=== PATIENT | female | born 1995 | race Caucasian/White ===

== ENCOUNTER 2020-02-09 12:12 | Emergency (ER) | payer OTHER, SELFPAY ==
--- NOTE | ~2020-02-09 | US_ITS ---
EXAMINATION: US OB <= 14 weeks fetus DATE: 02/09/2020 13:31 INDICATION: Vaginal bleeding during first trimester TECHNIQUE: Real-time pelvic transabdominal and transvaginal ultrasound was performed. COMPARISON: None. FINDINGS: The uterus measures 5.8 x 3.4 x 4.5 cm. No intrauterine gestational sac is identified. The right ovary measures 2.6 x 1.2 x 1.5 cm. The left ovary measures 2.6 x 1.6 x 2.6 cm. There is normal vascular flow in the ovaries. There is no free fluid in the pelvis. IMPRESSION: 1. of unknown location. Although no intrauterine gestational sac is seen, this may be due t o early gestation. If the patient is clinically stable, recommend followup with serial beta-hCG and u ltrasound. Reviewed, dictated and finalized at location A. [facility] IMPRESSION: 1. of unknown location. Although no intrauterine gestational sac is s een, this may be due to early gestation. If the patient is clinically stable, r ecommend followup with serial beta-hCG and ultrasound.
[2020-02-09 12:18] VITALS: BP 130/103; PULSE 102; RESP 18; TEMP 36.6; O2SAT 100
--- NOTE | 2020-02-09 12:33 | ED.GENADULT ---
HPI - General Adult General Chief complaint: Vaginal Bleeding Stated complaint: miscarriage Time Seen by Provider: 02/09/20 12:23 Source: RN notes reviewed History of Present Illness HPI narrative: Patient presents to emergency department from home for vaginal bleeding. Patient states he is approximately 6 weeks . She began to have some spotting days ago. She states that spotting become heavier 2 days ago and gone to [facility] where beta-hCG had been 160 at that time but she not had an ultrasound. She states she has been seen [facility] in [place] but is currently switching to an [facility] in [facility] with an appointment scheduled next week states she has had increased lower abdominal cramping today as well as vaginal bleeding and states she did take Tylenol. She denies any fevers or chills chest pain shortness of breath or any other symptoms. The patient is G4, P2. Patient states she had RhoGam at [facility] on Monday night or 2 days ago Related Data Home Medications Medication Instructions Recorded Confirmed No Home Medications 02/09/20 02/09/20 Allergies Allergy/AdvReac Type Severity Reaction Status Date / Time No Known Allergies Allergy Verified 02/09/20 12:17 Review of Systems Review of Systems: Narrative: Gen.: Denies fevers or chills ENT: Denies congestion Respiratory: Denies shortness of breath or cough CV: Denies chest pain or palpitations GI: Reports lower abdominal cramping, denies nausea, emesis or diarrhea see HPI Musculoskeletal: Denies back pain or muscle pain Neuro: Denies numbness, tingling, weakness or focal weakness Skin: Denies rash Except as documented, all other systems reviewed and negative [facility] Past Medical History Medical History (Updated 02/09/20 @ 14:58 by Santiago Marks DO) Patient denies significant medical history Social History Social History (Updated 02/09/20 @ 12:34 by Santiago Marks DO) Smoking status: Never smoker Gender identity (if verbalized by the patient): Female Exam Narrative: Exam Narrative: APPEARANCE: No acute distress, nontoxic, resting in bed HEENT: Normocephalic, atraumatic, OMM RESPIRATORY: No respiratory distress, clear to auscultation bilaterally with no rhonchi wheezing or rales CARDIOVASCULAR: RRR s murmur ABDOMINAL: Soft, nondistended, tender palpation right lower quadrant left lower quadrant no tenderness in right upper quadrant left upper quadrant no rebound or guarding : Normal external exam, small amount dark red blood in vaginal canal cervix is closed MUSCULOSKELETAl: Moves all extremities. No clubbing, cyanosis or edema. NEURO: Awake and alert. Following commands, speech normal, no focal deficits SKIN:: Warm, dry. Normal Color PSYCHIATRIC: Normal affect/mood Course Course Emergency Course: Patient with beta hCG of 160 on Monday night per patient. Patient did receive RhoGam at [place] on Monday night. Called discussed Dr. Fuentes presentation work-up. Agrees with plan for discharge with follow-up as an outpatient Discussed with patient results of workup and diagnosis. Discussed need for follow-up with primary care, proper use of medication, and reasons to return to the emergency department. Patient understands and agrees to current treatment plan Vital Signs Vital signs: Vital Signs Temperature 98 F 02/09/20 12:18 Pulse Rate 102 H 02/09/20 12:18 Respiratory Rate 18 02/09/20 12:18 Blood Pressure 130/103 H 02/09/20 12:18 Pulse Oximetry 100 02/09/20 12:18 Temperature 98 F 02/09/20 12:18 Pulse Rate 102 H 02/09/20 12:18 Respiratory Rate 18 02/09/20 12:18 Blood Pressure 130/103 H 02/09/20 12:18 Pulse Oximetry 100 02/09/20 12:18 Medical Decision Making Vital Signs Vital Signs: Vital Signs Temperature 98 F 02/09/20 12:18 Pulse Rate 102 H 02/09/20 12:18 Respiratory Rate 18 02/09/20 12:18 Blood Pressure 130/103 H 02/09/20 12:18 Pulse Oximetry
[2020-02-09 13:08] LABS: Alanine Aminotransferase 20 U/L (4-35); Albumin Level 4.7 g/dL (3.5-5.1); Alkaline Phosphatase 63 U/L (38-126); Anion Gap 9 mmol/L (8-16); Aspartate Amino Transferase 23 U/L (14-36); Bilirubin,Total 0.2 mg/dL (0.2-1.3); Blood Urea Nitrogen 14 mg/dL (7-17); Calcium 9.3 mg/dL (8.4-10.2); Carbon Dioxide 29 mmol/L (22-30); Chloride 106 mmol/L (98-107); Estimated CRCL calculation 74 ml/min; Estimated Glomerular Filt Rate > 60; Glucose 92 mg/dL (65-105); Potassium 3.9 mmol/L (3.4-5.0); Sodium 144 mmol/L (137-145)
[2020-02-09] MEDS: SODIUM CHLORIDE 0.9% IV 1,000 ML 999 ML IV CONT (13:11)
[2020-02-09 13:18] LABS: Basophils Percent Auto 0.4 % (0.2-1.2); Eosinophils Absolute Auto 0.1 K/mm3 (0-0.3); Eosinophils Percent Auto 1.4 % (0-4.4); Hematocrit 38.9 % (37.0-47.0); Hemoglobin 13.2 g/dL (12.0-15.0); Immature Granulocyte Absolute 0.03 K/mm3 (0.00-0.031); Immature Granulocyte Percent A 0.3 % (0-0.5); Lymphocytes Absolute Auto 2.47 K/mm3 (0.9-3.2); Mean Corpuscular HGB Conc 33.9 g/dl (32-36); Mean Corpuscular Hemoglobin 31.4 pg (26-34); Mean Corpuscular Volume 92.4 fl (80-100); Mean Platelet Volume 9.9 fl (7.4-10.4); Monocytes Absolute Auto 0.7 K/mm3 (0.1-0.6); Monocytes Percent Auto 6.9 % (2.6-8.5); Neutrophils Absolute Auto 6.5 K/mm3 (1.3-6.7); Platelet Count Result 359 k/mm3 (150-375); Red Blood Count 4.21 M/mm3 (4.2-5.4); Red Cell Distribution Width 11.8 % (11.5-14.5); White Blood Count 9.9 K/mm3 (4.5-10.0)
[2020-02-09 13:24] LABS: Beta HCG Quantitative 31.62 mIU/ML
[2020-02-09] MEDS: MORPHINE SULFATE (*CRX) 2 MG/ML INJ IV PUSH (14:30)
[2020-02-09 15:03] VITALS: BP 136/84; PULSE 84; RESP 16; O2SAT 99
== END 2020-02-09 15:20 | disposition home or self-care (01) ==
PROVIDERS: Emergency Provider Emergency Medicine; PCP Family Medicine
DX: O03.9 Complete or unspecified spontaneous abortion without complication (principal)
CPT/HCPCS: 36415; 76801; 80053; 84702; 85025; 85461; 86880; 86902; 96374; 99284; J2270; J7030